=== PATIENT | female | born 1975 | race Caucasian/White ===

== ENCOUNTER 2017-05-22 07:34 | Day surgery (SDC) | payer OTHER ==
[~2017-05-22] VITALS: Ht 162.6 cm; Wt 68.0 kg
[~2017-05-22 07:34] MED LIST: AMITRIPTYLINE 225 MG; CALTRATE 600 +1 TA1 PO; LORTAB 5/500 501 TAB PO; SYNTHROID 0.0.075 MG PO; TOPIRAMATE 25MG25 MG PO
--- NOTE | 2017-05-22 11:28 | Anesthesia Record ---
Anesthesia Record Part II Discharge time: 1200 Destination: Same day surgery PACU nurse assessment review? Yes Patient is: Nasal O2 Anesthesia complications? No at 1129
--- NOTE | 2017-05-22 11:28 | Anesthesia Record ---
Anesthesia Record Part I Total IV fluids: 700 EBL (ml): 10 Urine Output: 50 B/P: 107/58 % SaO2: 94 Pulse: 94 Resps: 50 Temp: 98.1 Patient is: Nasal O2 Stable to PACU at: 1120 at 1127
--- NOTE | 2017-05-22 11:32 | Operative Note-Podiatry ---
See Addendum Procedure/Operative Record Procedure DATE OF PROCEDURE 05/22/17 PREOPERATIVE DIAGNOSIS Left Hallux abducto valgus POSTOPERATIVE DIAGNOSIS Same as Preop Dx PROCEDURE PERFORMED Left Kasi bunionectomy with Carroll Bonilla SURGEON Aline Aguilar DPM ANESTHESIA General 20 cc 0.5% marcaine plain EBL (ml) 5 OPERATIVE NOTE/DISCHARGE/PLAN Indication for procedure: This is a pleasant 42-year-old female who presented with painful bunion deformity. She tried and failed conservative treatment including icing and elevation, nonsteroidal anti-inflammatory drugs, strapping, taping, inserts. Patient continued to have pain and progressive deformity. We discussed surgery to repair the bunion. Risks and benefits discussed including but not limited to, damage to nerve and blood vessels, infection, delayed healing of soft tissue or bone, prolonged swelling, prolonged pain and deformity, painful retained hardware, RSD/CRPS, DVT, anesthesia complications. The patient understands these risks. No guarantees given, questions fully answered and informed consent was obtained. The standard patient seen a progressive deformity since the patient was with the prep holding area Theater and placed in the table in a supine position. After induction of general anesthesia. 10 mL of half percent Marcaine plain were infiltrated in the LEFT foot and a regional block fashion. LEFT mid calf tourniquet was applied and the LEFT lower extremity was prepped and draped in normal sterile fashion procedure. LEFT Kasi bunionectomy with carroll Boinlla: Attention was directed to the dorsal medial aspect of the LEFT foot. Tourniquet was inflated at 225 mmHg. An incision was mapped out the medial aspect of the first MPJ. Dissection was carried to skin and subcq tissue with care to maintain surgical hemostasis and safely retract NV structures. Dissection was taken down to level the first metatarsal phalangeal joint, soft tissue was T ed out at the joint exposing the met head. Attention was directed to first interspace where lateral release was performed including release of the adductor tendon at its insertion on base on proximal phalanx. The fibular suspensory ligament was also released. Attention was directed to the dorsal medial eminence where a sagittal saw was used to resect the bump. A 0.045 mm K wires and inserted to uses an axis guide. A standard Kasi osteotomy was cut. The bone was translated laterally impacted and held with temporary fixation. Intraoperative fluoroscopy was utilized to confirm position and reduction. At this point the [employer] ISO plate was going to be inserted however upon initial broaching the bone was too small. Instead of continuing with this fixation a 2.5 mm headless dart fire screw was inserted in standard techique. Good compression was noted across the osteotomy site. X-ray was used to check position of reduction and screw position. It was deemed to be appropriate. Next sagittal saw was used to resect the redundant bone medially. The flushed copiously with normal sterile saline. Attention was directed to the medial first metatarsophalangeal joint where a medial capsulorrhaphy was performed removing redundant soft tissue. Soft tissue was repaired with 2-0 Vicryl in an over and over fashion. Deep tissue was also closed. 4-0 Vicryl was then used to reapproximate the subcu tissue in a running fashion. 4 Monocryl was then used to reapproximate the skin in running subcuticular fashion. Steri-Strips were applied followed by Xeroform dry sterile dressing to the LEFT foot. Tourniquet was deflated at 68 minutes jovani-hyperemic response noted to the digits. Patient was transferred to recovery with vs stable and NV status intact to be transferred to recovery for further monitoring before being discharged home today Plan: Maintain the dressing clean dry and intact to the LEFT foot Elevated on a pillow, apply ice to the top of the LEFT foot Nonweightbearing in a postoperative shoe with crutches Has prescription for [place], Zofran, Motrin X-rays will be obtained in PACU Follow-up in one week as previously scheduled at 1159
--- NOTE | 2017-05-22 13:04 | RADIOLOGY REPORT PS360 ---
FOOT-LT-3 VIEWS HISTORY: Postoperative surgery S/P LEFT COMPA BUNIONECTOMY ORDERING PHYSICIAN: DEBRA ADAM DPM PATIENT AGE: 42 years COMPARISON: 04/11/2017 FINDINGS: There is been interval osteotomy with bunionectomy at the distal aspect of the first metatarsal. A screw is present stabilizing the distal fragment. There is been interval improvement in the hallux valgus of the distal fragment is slightly displaced laterally and towards the plantar aspect of the foot. Postsurgical gas is noted. IMPRESSION: Postsurgical changes from osteotomy and bunionectomy.
[2017-05-22 16:20] VITALS: BP 117/65
--- NOTE | 2017-06-12 10:42 | RADIOLOGY REPORT PS360 ---
FOOT-LT-2 VIEWS HISTORY: L COMPA BUNIONECTOMY/POSS AKINOSTEMOMY Patient Age: 42 years: Female Ordering Physician: DEBRA ADAM DPM TECHNIQUE: 2 views left foot COMPARISON : 04/11/2017 left foot weightbearing FINDINGS The images document the patient's of bunionectomy with osteotomy at the neck of the first metatarsal and placement of a screw entering obliquely from the dorsal aspect transversing the osteotomy here at the neck of first metatarsal. There also appears to been partial resection at the medial aspect of head first MTP. IMPRESSION: Images document osteotomy/bunionectomy at the first metatarsal
== END 2017-05-22 12:25 | disposition home or self-care (01) ==
LOC: SDC 07:34
PROVIDERS: Podiatrist
PROC: 0QSP04Z Reposition Left Metatarsal with Internal Fixation Device, Open Approach (ICD-10-PCS; principal; 2017-05-22 09:00)
DX: M20.12 Hallux valgus (acquired), left foot (principal); M21.612 Bunion of left foot
CPT/HCPCS: C1713; C1762; J2405